=== PATIENT | female | born 1960 | race Caucasian/White ===

== ENCOUNTER 2020-07-15 11:40 | Outpatient (CLI) | payer BC ==
[~2020-07-15 11:40] MED LIST: Magnevist 469MG/ML 20 ML VIAL ONE
== END 2020-07-15 11:41 | disposition home or self-care (01) ==
LOC: MRI 11:40
PROVIDERS: ATTEND Nurse Practitioner Acute Care
DX: R40.4 Transient alteration of awareness (principal)
CPT/HCPCS: 70553; 95816; A9579